=== PATIENT | male | born 1965 | race African-American/Black ===

== ENCOUNTER 2020-11-17 17:02 | Emergency (ER) | payer OTHER ==
[~2020-11-17] VITALS: Ht 167.6 cm; Wt 81.7 kg
[~2020-11-17 17:02] MED LIST: CIPROFLOXACIN500 M1 PO; NOHOMEMEDICATIONS; NORCO 5-325 TA1 EACH PO
[2020-11-17 17:04] VITALS: BP 133/87
== END 2020-11-17 17:48 | disposition home or self-care (01) ==
LOC: ER 17:02
DX: J06.9 Acute upper respiratory infection, unspecified (principal)